=== PATIENT | male | born 1945 | race Caucasian/White ===

== ENCOUNTER → 2024-02-24 | Outpatient (CLI) | payer OTHER, SELFPAY ==
--- NOTE | 2024-02-24 14:18 | XR_ITS ---
Examination: Bilateral wrists 6 views TECHNIQUE: AP oblique lateral each wrist total 6 views Exam date and time: February 24, 2024 1424 hours INDICATIONS: Patient fell 2 days ago with injury to both wrists, bilateral wrist pain. FINDINGS: Severe osteopenia Status post resection right navicular Advanced narrowing right radiocarpal joint and first carpometacarpal joint Soft tissue vascular calcification Advanced osteoarthritis navicular trapezium and first carpometacarpal joint left breast and moderate narrowing left radiocarpal joint IMPRESSION: No acute wrist fractures
--- NOTE | 2024-02-24 14:18 | XR_ITS ---
Examination: Bilateral hands, 6 views. Technique: AP, Oblique, Lateral each hand total 6 views Date and time of exam: February 24, 2024 at 1421 hours INDICATIONS: Patient fell 2 days ago with injury to both hands, bilateral hand pain FINDINGS: Severe osteopenia Significant bilateral arthritic change involving interphalangeal joints especially proximal interphalangeal joints both hands, most severe third and fourth digits right hand and 34th digits left hand Please see the wrist report No acute fracture No dislocation IMPRESSION: No acute fracture involving either hand
== END | disposition home or self-care (01) ==
LOC: CDIM 14:09
DX: S69.92XA Unspecified injury of left wrist, hand and finger(s), initial encounter (principal); S69.91XA Unspecified injury of right wrist, hand and finger(s), initial encounter; W19.XXXA Unspecified fall, initial encounter
CPT/HCPCS: 73110; 73130

== ENCOUNTER 2024-11-18 07:37 | Emergency (ER) | payer MEDICARE, SELFPAY ==
[2024-11-18 07:37] VITALS: BMI 22.9
[2024-11-18 07:44] VITALS: BP 113/71; PULSE 88; RESP 18; TEMP 36.9; O2SAT 95
--- NOTE | 2024-11-18 08:02 | PD.EDHEAD ---
ED Head Injury RME/HPI General Chief complaint: Head Injury Stated complaint: TRIP/FALL LAC TO LEFT FOREHEAD, NO LOC Time Seen by Provider: 11/18/24 07:47 Arrival date/time: 11/18/24 07:37 79-year-old male presents to the emergency department today stating that he had a trip and fall today while walking patient reports he walks approximately 35 miles a week patient reports he is approximately 5 miles into a 9 mile walk today when he accidentally hit a curb and fell forward hitting the left side of his head. Patient reports no loss of consciousness no vomiting no neck pain reports no chest pain or shortness of breath Limitations: no limitations Related Data Home Medications ?Medication ?Instructions ?Recorded ?Confirmed albuterol sulfate 90 mcg/actuation 2 puff inhalation QID PRN sob 08/21/17 12/12/18 aerosol inhaler (Ventolin HFA) aspirin 81 mg tablet,delayed 81 mg PO DAILY 08/21/17 12/12/18 release (Aspir-) finasteride 5 mg tablet (Proscar) 5 mg PO QDAY 08/21/17 12/12/18 fluticasone propionate 220 1 puff inhalation BID 08/21/17 12/12/18 mcg/actuation HFA aerosol inhaler (Flovent HFA) montelukast 10 mg tablet 10 mg PO QPM 08/21/17 12/12/18 (Singulair) multivitamin 1 tab PO QDAY 08/21/17 12/12/18 cholecalciferol (vitamin D3) 10 400 unit PO QDAY 12/12/18 12/12/18 mcg (400 unit) capsule (Vitamin D3) cyanocobalamin (vitamin B-12) 1,000 mcg PO EVERYOTHERDAY 12/12/18 12/12/18 1,000 mcg tablet (Vitamin B-12) tamsulosin 0.4 mg capsule 0.4 mg PO QDAY 12/12/18 12/12/18 Previous Rx's ?Medication ?Instructions ?Recorded ondansetron 4 mg disintegrating 4 mg PO Q8H PRN nausea and 02/22/19 tablet vomiting #10 tabs albuterol sulfate 90 mcg/actuation 2 inh inhalation QID PRN shortness 01/02/23 breath activated powder of breath or wheezing #1 ea inhaler,sensor Allergies Allergy/AdvReac Type Severity Reaction Status Date / Time No Known Allergies Allergy Verified 11/18/24 07:40 Review of Systems Review of Systems Systems Reviewed: All systems reviewed, normal except as documented Constitutional Constitutional: Reports system reviewed and no additional complaints, except as documented, Denies fever(s) and Denies headache(s) Eyes Eyes: Reports system reviewed and no additional complaints, except as documented and Denies blurry vision ENT Ears, Nose, Mouth, and Throat: Reports system reviewed and no additional complaints, except as documented, Denies headache(s), Denies nasal congestion and Denies nasal discharge Cardiovascular Cardiovascular: Reports system reviewed and no additional complaints, except as documented, Denies chest pain and Denies dyspnea Respiratory Respiratory: Reports system reviewed and no additional complaints, except as documented, Denies chest congestion, Denies cough and Denies dyspnea Gastrointestinal Gastrointestinal: Reports system reviewed and no additional complaints, except as documented and Denies abdominal pain Integumentary/Breasts Skin/Breast: Reports system reviewed and no additional complaints, except as documented, Denies rash and Reports wounds (Facial laceration 3 cm irregular) Neurologic Neurologic: Reports system reviewed and no additional complaints, except as documented, Reports as per HPI and Denies headache(s) Past Medical History Past Medical History CARDIAC: Negative Congestive Heart Failure RESPIRATORY: Positive Chronic Obstructive Pulmonary Disease (COPD) and Asthma GENITOURINARY: Negative Renal Disease MUSCULOSKELETAL: Positive Arthritis and Carpal Tunnel Syndrome ENDOCRINE: Negative Diabetes Mellitus Type 1 or Diabetes Mellitus Type 2 OTHER HISTORY: Positive Cancer (prostate CA) Social History SMOKING STATUS: Never smoker SUBSTANCE USE: does not use ED Exam General Limitations: Present no limitations General appearance: Present alert and in no apparent distress Expanded Head Exam Head image:  1. 3 cm laceration irregular Eye Eye exam: Present normal appearance, PERRL and EOMI ENT ENT exam: Present normal exam, normal oropharynx and mucous membranes moist Neck Neck exam: Present normal inspection, full ROM and trachea midline Chest Chest inspection: Present normal inspection and symmetric chest wall rise Respiratory Respiratory exam: Present normal lung sounds bilaterally Cardiovascular Cardiovascular exam: Present regular rate, normal rhythm and normal heart sounds Abdominal Exam Abdominal exam: Present soft and normal bowel sounds Extremities Exam Extremities exam: Present normal inspection and full ROM Back Exam Back exam: Present normal inspection and full ROM Neurological Exam Neurological exam: Present alert, oriented X3, CN II-XII intact, normal gait and reflexes normal; Absent motor sensory deficit Psychiatric Psychiatric exam: Present normal affect and normal mood Skin Skin exam: Present warm, dry and other (Facial laceration) Course Quality Measures none Orders Category Date Time Status Set Up Suture Tray STAT Care 11/18/24 07:52 Completed Wound Care NOW Care 11/18/24 07:52 Completed Lidocaine 1% W/Epi 1:100K 20Ml [Xylocaine 1% w/Epi 1: Med 11/18/24 07:51 Discontinued 100K 20 ml] 20 ml INFL X1 ONE Vital Signs Vital signs: Vital Signs Temperature 98.4 F 11/18/24 07:44 Pulse Rate 88 11/18/24 07:44 Respiratory Rate 18 11/18/24 07:44 Blood Pressure 113/71 11/18/24 07:44 Pulse Oximetry (%) 95 11/18/24 07:44 Oxygen Delivery Method Room Air 11/18/24 07:44 O2 saturation 95% on room air within normal limits PROCEDURES: Laceration Laceration 1: Site: face Side (If applicable): left Size (cm): 3 Description: irregular Depth: simple, single layer Local Anesthetic: lidocaine 1% and with epi Amount of anesthesia used (mL): 5 Pre-repair: wound explored Skin layer closed with: nylon Suture size (cm): 5-0 Number of sutures: 9 Technique: simple, interrupted Head Injury MDM Narrative MDM Narrative:: 79-year-old male presents to the emergency department today stating that he had a trip and fall today while walking patient reports he walks approximately 35 miles a week patient reports he is approximately 5 miles into a 9 mile walk today when he accidentally hit a curb and fell forward hitting the left side of his head. Patient reports no loss of consciousness no vomiting no neck pain reports no chest pain or shortness of breath On exam patient well-appearing patient does not appear ill or toxic no acute distress Exam patient is laceration above his left eyebrow approximate 3 to 4 cm irregular Laceration repaired with 9 sutures tetanus up-to-date Patient reports absolutely no neck pain no dizziness no weakness no headache patient carries on a normal conversation entire time of suturing him. Patient is not on Eliquis warfarin or Plavix As patient reports no pain has no active bleeding patient be discharged home at this time Patient discharged home in no distress to follow-up with primary care doctor in the next 24 to 48 hours and for any worsening symptoms to return to the ER immediately Patient data External records reviewed:: [facility] previous records Clinical information provided by:: patient Social determinants that could affect healthcare access:: none Patient has the following chronic illnesses:: none How is presenting disease/condition affected by chronic disease/condition?: no chronic disease Evaluation data The following diagnostics were reviewed and interpreted by me:: other (specify) (None) Lab and/or radiology exams considered but not ordered:: N/A Interpretation Summary: Considered not ordered Medications / Prescriptions Medications or Prescriptions considered but not ordered:: Given Medication administrations:: Medication Administration History Discontinued Medications Lidocaine/Epinephrine (Lidocaine 1% W/Epi 1:100k 20 Ml Vial) 20 ml INFL X1 ONE Stop: 11/18/24 07:52 Last Admin: 11/18/24 08:05 Dose: 20 ml Documented By: BY given Consultations Consultation(s) initiated? (list below): No Diagnosis Differential diagnosis head injury: concussion without loss of consciousness, subdural hematoma and concussion with loss of consciousness Most likely diagnosis given after review of the tests above:: Laceration Admission Indicated Admission indicated?: not indicated Admission Request Was there a request for admission?: No Disposition Plan Disposition Plan: Discharge Discharge Attestation Discharge Attestation: The patient and all family members were given an opportunity to ask questions and understood the discharge instructions. Discharge instructions specifically effects, indications for sooner follow up or return to the emergency department, and the expected course of current diagnosis. Patient condition: Stable Discharge Plan Plan Patient Disposition: HOME (Self Care) Discharge Disposition comment: stable Prescriptions/Referrals Prescriptions/Med Rec: No Action ondansetron 4 mg tablet,disintegrating 4 mg PO Q8H PRN (Reason: nausea and vomiting) Qty: 10 0RF multivitamin Tablet 1 tab PO QDAY aspirin [Aspir-81] 81 mg Tablet,Delayed Release (Dr/Ec) 81 mg PO DAILY montelukast [Singulair] 10 mg Tablet 10 mg PO QPM Flovent HFA 220 mcg/actuation Hfa Aerosol Inhaler 1 puff INHALATION BID albuterol sulfate [Ventolin HFA] 90 mcg/actuation Hfa Aerosol Inhaler 2 puff INHALATION QID PRN (Reason: sob) finasteride [Proscar] 5 mg Tablet 5 mg PO QDAY cyanocobalamin (vitamin B-12) [Vitamin B-12] 1,000 mcg Tablet 1,000 mcg PO EVERYOTHERDAY tamsulosin 0.4 mg Capsule 0.4 mg PO QDAY cholecalciferol (vitamin D3) [Vitamin D3] 400 unit Capsule 400 unit PO QDAY albuterol sulfate 90 mcg/actuation aero powdr breath act w/sensor 2 inh inhalation QID PRN (Reason: shortness of breath or wheezing) Qty: 1 0RF Problem List Clinical Impression: Facial laceration, CHI (closed head injury) Patient/Caregiver Discharge Instructions Education Materials: ED Laceration Small or ... Additional Instructions: Please follow up with your primary care doctor in the next 24-48hrs for any worsening symptoms return here immediately Please have sutures removed in 7 to 10 days Print Language: [place] Stand Alone Forms: Tania Award Info., Patient Portal Info Letter PA/TELECOMMUNICATIONS REPAIRER Supervising Physician PA/TELECOMMUNICATIONS REPAIRER Supervising Physician: Dr. alonzo
[2024-11-18] MEDS: LIDOCAINE 1% W/EPI 1:100K 20 ML VIAL INFL (08:05)
--- NOTE | 2024-11-18 08:06 | PC.NURSE ---
EPI TO BE ASMINISTERED BY PROVIDER FOR SUTURE REPAIR
--- NOTE | 2024-11-18 08:18 | PC.NURSE ---
provider at bedside suturing patient
[2024-11-18 08:51] VITALS: BP 108/72; RESP 18
== END 2024-11-18 08:50 | disposition home or self-care (01) ==
PROVIDERS: Emergency Provider Family Medicine; PCP Internal Medicine
DX: S01.81XA Laceration without foreign body of other part of head, initial encounter (principal); W01.10XA Fall on same level from slipping, tripping and stumbling with subsequent striking against unspecified object, initial encounter; Y93.01 Activity, walking, marching and hiking; Y92.410 Unspecified street and highway as the place of occurrence of the external cause
CPT/HCPCS: 12013; 93041; 99284; J3490